=== PATIENT | female | born 1980 | race Caucasian/White ===

== ENCOUNTER 2016-07-31 10:56 | Emergency (ER) | payer MEDICAID, OTHER ==
--- NOTE | 2016-07-31 12:12 | ERRECORD ---
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 Small punctures in the skin scattered on dorsum of left hand, in webbing of left thumb/index finger, and on right thumb. Mostly abrasion and bruising with most significant puncture on dorsum of left hand. Pt with swelling and tenderness of left dorsum but not on the palmar side. Pt is 38 wks . The dog was not vaccinated but has been in the fci 2 weeks with minimal contact with other dogs. The dog is currently being put down and will be sent off to r/o rabies. COMPLICATING FACTORS: Tetanus status up to date. HISTORIAN: History provided by patient. LOCATION: Symptoms are localized. QUALITY: Pain is dull in nature. TIME COURSE: 30, minutes prior to arrival. ASSOCIATED WITH: No associated erythema, No associated fever, Associated with localized swelling. RISK FACTORS: Hand bite. EXACERBATED BY: Patient's condition exacerbated by nothing. RELIEVED BY: Patient's condition relieved by nothing. ROS (Sat Aug 02, 2016 07:26 JLOY) CONSTITUTIONAL: Historian denies chills, denies fever. MUSCULOSKELETAL: Historian denies deformity, denies joint swelling. SKIN: bite wounds as per HPI. NEUROLOGIC: Historian denies paralysis, denies paresthesias, denies sensory changes. PAST MEDICAL HISTORY (Sat Aug 02, 2016 07:29 JLOY) NOTES: Nursing records reviewed, Agree with nursing records. KNOWN ALLERGIES codeine sulfate: - very nausea CURRENT MEDICATIONS (11:15 BDON) iron: TABLET : Strength - 27 mg iron : ORAL Patient Dose: . : TABLET : Strength - 1 mg : ORAL Patient Dose: otc. VITAL SIGNS (11:10 BDON) VITAL SIGNS: BP: 139/77, Pulse: 119, Resp: 18, Temp: 97.2 (Oral), Pain: 5, O2 sat: 97, Time: 07/31/2016 11:10. PHYSICAL EXAM (Sat Aug 02, 2016 07:27 JLOY) CONSTITUTIONAL: Vital Signs Reviewed, Patient appears non toxic, Patient alert and oriented to person, place and time. &a-1R&a+25V*p+0X*i0366X*c202B*c15G*c2P*p-0X&a-25V&a+1R Name: Jany Acevedo : 1980 4 MedRec: [id number] AcctNum: [id number] Prepared: [facility] Aug 02, 2016 07:32 by Interface Page 1 of 2 pMD [facility] EMERGENCY RECORD EYES: Eye exam included findings of eyelids normal to inspection, Pupils equally round and reactive to light, Conjunctiva normal. RESPIRATORY CHEST: Respiratory exam included findings of no respiratory distress, Chest exam included findings of chest movement symmetrical. UPPER EXTREMITY: Upper extremity exam included findings of inspection abnormal, abrasions/contusions/ puncture wounds left and right hand as per HPI. Only significant swelling over left dorsum. TTP. No TTP palmar side. Fingers with full ROM and normal angulation. No signs of fracture. No pain with axial loading. NEURO: [place] coma scale 15, Neuro exam findings include patient oriented to person, place and time, Speech normal. SKIN: Skin exam included findings of skin warm, dry, and normal in color, Shallow subcutaneous. PSYCHIATRIC: Normal affect. PROBLEM LIST No recorded problems DIAGNOSIS (11:40 JLOY) FINAL: PRIMARY: Open bite LEFT hand, ADDITIONAL: Open bite RIGHT hand. PRESCRIPTION No recorded prescriptions DISPOSITION PATIENT: Disposition Type: Discharge, Disposition: *Discharge Home. (11:40 JLOY) Patient left the department. (12:02 BDON) Melgar: LYNNETTE=LISBETH Larios Bettye JLOY=MD Josh, Wally &a-1R&a+25V*p+0X*[id number]*c202B*c15G*c2P*p-0X&a-25V&a+1R Name: Jany Acevedo : 1980 F35 MedRec: [id number] AcctNum: [id number] Prepared: [facility] Aug 02, 2016 07:32 by Interface Page 2 of 2 pMD MTDD
--- NOTE | 2016-07-31 12:18 | PICIS ---
[facility] EMERGENCY RECORD TRIAGE (11:14 BDON) TRIAGE NOTES: Dog bit at skilled nursing, dogs are detained, her boss jessi [employer] is in room. Right thumb bite..bleeding controlled. Left hand several bites including below 4th and 5th finger and posteir below thumb.. bleeding controlled [employer] has been notified of event. (11:14 BDON) PATIENT: NAME: Jany Acevedo, AGE: 35, GENDER: female, : Sun 1980, TIME OF GREET: ThuJul 31, 2016 10:57, PREFERRED LANGUAGE: Turkmen, ETHNICITY: Not or , ECODE BILLING MAP: [facility], SSN: [id number], Zip Code: [address], KG WEIGHT: 99.34, PHONE: , , , PERSON ID: [id number], PCP: MD Kowalski Justin. (11:14 BDON) COMPLAINT: DOG BITE. (11:14 BDON) ADMISSION: URGENCY: 4 Non Urgent, ADMISSION SOURCE: Home, TRANSPORT: Walk-in, BED: TRIAGE. 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 Dog has been there for about 10 days, Symptoms began 30 min ago. (11:57 BDON) PROVIDERS: TRIAGE NURSE: Pastora Larios RN. (11:14 BDON) VITAL SIGNS: BP 139/77, Pulse 119, Resp 18, Temp 97.2, (Oral), Pain 5, O2 Sat 97, Time 07/31/2016 11:10. (11:10 BDON) KNOWN ALLERGIES codeine sulfate: - very nausea CURRENT MEDICATIONS (11:15 BDON) iron: TABLET : Strength - 27 mg iron : ORAL Patient Dose: uk. : TABLET : Strength - 1 mg : ORAL Patient Dose: otc. VITAL SIGNS (11:10 BDON) VITAL SIGNS: BP: 139/77, Pulse: 119, Resp: 18, Temp: 97.2 (Oral), Pain: 5, O2 sat: 97, Time: 07/31/2016 11:10. NURSING ASSESSMENT: SKIN (11:28 BDON) CONSTITUTIONAL: Patient arrives ambulatory, Gait steady, History obtained from patient, Patient appears, uncomfortable, Patient cooperative, Patient alert, Oriented to person, place and time, Skin warm, Skin dry, Skin normal in color. SKIN: Inspection findings include bite shook, to right hand below thumb, left hand several sites, from dog, bleeding controlled. SAFETY: Cart/Stretcher in lowest position, Hospital ID band on, Patient in view of the nursing station. NURSING PROCEDURE: DISCHARGE NOTE (11:59 BDON) &a-1R&a+25V*p+0X*z7950D*c202B*c15G*c2P*p-0X&a-25V&a+1R Name: Jany Acevedo : 1980 F35 MedRec: [id number] AcctNum: [id number] Prepared: Sat Aug 02, 2016 07:38 by Interface Page 1 of 4 pMD [facility] EMERGENCY RECORD DISCHARGE: Patient discharged to home, ambulating without assistance, transported via state vehicle, Summary of Care printed/ provided, Patient requested and was provided an electronic copy of Discharge Instructions, Transition record given to patient, Discharge instructions given to patient, Simple or moderate discharge teaching performed, Patient treated and evaluated by physician, Notes: dog will remain at skilled nursing and observed. NURSING PROCEDURE: WOUND CARE PATIENT IDENTIFIER: Patient actively involved in identification process. (11:30 BDON) TIMEOUT: Prior to procedure, correct patient verified by, Correct procedure verified, Correct site verified, Correct equipment utilized. (11:30 BDON) WOUND CARE: Wound care indicated to promote healing, Wound site: right and left hand, Cause of wound: dog bite, Wound irrigated with 500 mL of normal saline, Wound cleansed with Hibiclens, soaked in solution. (11:30 BDON) FOLLOW-UP: Notes: bandaides applied to sites which are superficial. (11:48 BDON) ORDER DETAILS Order Name: chart element #1, Status: Active, Time: 11:30 07/31/2016, User: System, - Ordered for: MD Josh, Wally, - Entered by: LISBETH Larios, [facility] Jul 31, 2016 11:30, - Quantity: 1, Order Name: chart element #4, Status: Active, Time: 11:30 07/31/2016, User: System, - Ordered for: MD Josh, Wally, - Entered by: LISBETH Larios Bettye - Thu Jul 31, 2016 11:30, - Quantity: 1. 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 Small punctures in the skin scattered on dorsum of left hand, in webbing of left thumb/index finger, and on right thumb. Mostly abrasion and bruising with most significant puncture on dorsum of left hand. Pt with swelling and tenderness of left dorsum but not on the palmar side. Pt is 38 wks . The dog was not vaccinated but has been in the skilled nursing 2 weeks with minimal contact with other dogs. The dog is currently being put down and will be sent off to r/o rabies. COMPLICATING FACTORS: Tetanus status up to date. HISTORIAN: History provided by patient. LOCATION: Symptoms are localized. QUALITY: Pain is dull in nature. TIME COURSE: 30, minutes prior to arrival. ASSOCIATED WITH: No associated erythema, No &a-1R&a+25V*p+0X*r4053H*c202B*c15G*c2P*p-0X&a-25V&a+1R Name: Jany Acevedo : 1980 F35 MedRec: [id number] AcctNum: [id number] Prepared: [facility] Aug 02, 2016 07:38 by Interface Page 2 of 4 pMD [facility] EMERGENCY RECORD associated fever, Associated with localized swelling. RISK FACTORS: Hand bite. EXACERBATED BY: Patient's condition exacerbated by nothing. RELIEVED BY: Patient's condition relieved by nothing. ROS ([facility] Aug 02, 2016 07:26 [facility]) CONSTITUTIONAL: Historian denies chills, denies fever. MUSCULOSKELETAL: Historian denies deformity, denies joint swelling. SKIN: bite wounds as per HPI. NEUROLOGIC: Historian denies paralysis, denies paresthesias, denies sensory changes. PAST MEDICAL HISTORY ([facility] Aug 02, 2016 07:29 JL) NOTES: Nursing records reviewed, Agree with nursing records. PHYSICAL EXAM ([facility] Aug 02, 2016 07:27 JLOY) CONSTITUTIONAL: Vital Signs Reviewed, Patient appears non toxic, Patient alert and oriented to person, place and time. EYES: Eye exam included findings of eyelids normal to inspection, Pupils equally round and reactive to light, Conjunctiva normal. RESPIRATORY CHEST: Respiratory exam included findings of no respiratory distress, Chest exam included findings of chest movement symmetrical. UPPER EXTREMITY: Upper extremity exam included findings of inspection abnormal, abrasions/contusions/ puncture wounds left and right hand as per HPI. Only significant swelling over left dorsum. TTP. No TTP palmar side. Fingers with full ROM and normal angulation. No signs of fracture. No pain with axial loading. NEURO: [place] coma scale 15, Neuro exam findings include patient oriented to person, place and time, Speech normal. SKIN: Skin exam included findings of skin warm, dry, and normal in color, Shallow subcutaneous. PSYCHIATRIC: Normal affect. EVENTS TRANSFER: Triage to Emergency Triage. ([facility] Jul 31, 2016 11:14 BDON) Emergency Triage to Emergency Room -04. (11:15 BDON) Removed from Emergency Emergency Room -04. (12:02 BDON) PROBLEM LIST No recorded problems DIAGNOSIS (11:40 JLOY) FINAL: PRIMARY: Open bite LEFT hand, ADDITIONAL: Open bite RIGHT hand. DISPOSITION PATIENT: Disposition Type: Discharge, Disposition: *Discharge &a-1R&a+25V*p+0X*l4008G*c202B*c15G*c2P*p-0X&a-25V&a+1R Name: Jany Acevedo Franci : 1980 F35 MedRec: [id number] AcctNum: [id number] Prepared: [facility] Aug 02, 2016 07:38 by Interface Page 3 of 4 pMD [facility] EMERGENCY RECORD Home. (11:40 JLOY) Patient left the department. (12:02 BDON) INSTRUCTION (11:40 JLOY) DISCHARGE: BITE DOG. FOLLOWUP: MD Meghana, Ulysses, Obstetrics and Gynecology, [address] [place] [address], [address], [facility] [address], , Follow up with Primary Care Physician in 7-10 days. PRESCRIPTION No recorded prescriptions IMAGING (12:01 BDON) *DISCHARGE INSTRUCTIONS RECEIPT: Image captured from scanner. *SUPPLY CHARGE SHEET: Image captured from scanner. ADMIN DIGITAL SIGNATURE: LISBETH Larios, Pastora. (12:02 BDON) MD Moreno Joshua. (ThuAug 02, 2016 07:29 JLOY) Melgar: BDON=LISBETH Larios Bettye JLOY=MD Moreno Joshua &a-1R&a+25V*p+0X*k0628L*c202B*c15G*c2P*p-0X&a-25V&a+1R Name: Curtis Jany Franci : 1980 4 MedRec: [id number] AcctNum: [id number] Prepared: [facility] Aug 02, 2016 07:38 by Interface Page 4 of 4 pMD [facility] MEDICATION RECONCILIATION You were seen in the Emergency Department on: ThuJul 31, 2016 KNOWN ALLERGIES codeine sulfate: - very nausea HOME MEDICATIONS CONTINUE PRESCRIBED iron : TABLET : Strength - 27 mg iron : ORAL Continue as prescribed Patient had been taking: uk. : TABLET : Strength - 1 mg : ORAL Continue as prescribed Patient had been taking: otc. &a-1R&a+25V*p+0X*z3524N*c202B*c15G*c2P*p-0X&a-25V&a+1R Name: Curtis Jany Franci : 1980 F35 MedRec: [id number] AcctNum: [id number] Prepared: [facility] Aug 02, 2016 07:38 by Interface pMD MTDD
== END 2016-07-31 11:59 | disposition home or self-care (01) ==
LOC: NAV ERS 10:56
DX: O9A.213 Injury, poisoning and certain other consequences of external causes complicating pregnancy, third trimester (principal); S61.452A Open bite of left hand, initial encounter; S61.451A Open bite of right hand, initial encounter; Z3A.38 38 weeks gestation of pregnancy; W54.0XXA Bitten by dog, initial encounter
CPT/HCPCS: 99283

== ENCOUNTER 2018-08-25 11:25 | Emergency (ER) | payer OTHER ==
[2018-08-25] MEDS ORDERED: Adacel (T-DAP) 0.5 ML SYRINGE ONE (12:04)
--- NOTE | 2018-08-25 13:05 | RAD ---
RIGHT TOES 3 VIEWS: HISTORY: Injury to the great toe. COMPARISON: None. FINDINGS: There is a nondisplaced fracture of the distal phalanx distal diaphysis of the great toe seen best on the AP view. Moderate soft tissue swelling. IMPRESSION: Nondisplaced transversely oriented fracture of the distal phalanx of the great toe through the distal diaphysis. POS: TPC
== END 2018-08-25 13:24 | disposition home or self-care (01) ==
LOC: NAV ERS 11:25
DX: S92.424A Nondisplaced fracture of distal phalanx of right great toe, initial encounter for closed fracture (principal); W20.8XXA Other cause of strike by thrown, projected or falling object, initial encounter
CPT/HCPCS: 12001; 90471; 90715